=== PATIENT | female | born 1990 | race Caucasian/White ===

== ENCOUNTER → 2019-04-22 | Outpatient (CLI) | payer BC ==
--- NOTE | 2019-04-22 14:54 | CT ---
EXAM DESCRIPTION: Abdomen/Pelvis w/Contrast: Computed Tomography. CLINICAL HISTORY: 29 years Female LOWER ABDOMINAL PAIN. Tender palpation right lower quadrant. Afebrile. Normal white blood count. COMPARISON: Endovaginal pelvic ultrasound on this visit. TECHNIQUE: Spiral-axial scans at 5 x 5 mm intervals through the abdomen and pelvis, after nonionic IV contrast without oral contrast. Coronal and sagittal 2.0 mm reconstructions. Delayed scans, liver through the pelvis. Axial-spiral 5mm. No adverse reactions. Total Exam DLP: 2181 mGy-cm. This exam was performed according to our departmental dose-optimization program which includes automated exposure control, adjustment of the mA and/or kV according to patient size and/or use of iterative reconstruction technique; to reduce radiation dose to as low as reasonably achievable (ALARA). FINDINGS: Lung bases and pleura: Negative Liver, Stomach, Spleen, Adrenal Glands: Long axis right lobe 18.1 cm. Normal hepatic density and enhancement and vascularity. Stomach and other solid organs are unremarkable. Pancreas, Gallbladder, Ducts: Gallbladder identified. Duct and pancreas negative. Kidneys and Ureters: Unremarkable. Mesentery: No stranding or fascial thickening. Minimal fluid in the cul-de-sac but no ascites. No fatty stranding or fascial thickening in the adjacent to the cul-de-sac. Aorta: Negative. Small Bowel: Minimal gas and fluid with no distention or obstruction. Terminal Ileum/Cecum: Normal caliber of the structures and normal caliber of the appendix with no surrounding fluid or mesenteric reaction. Colon: Gas and fecal matter proximal and mid colon. Decompressed proximal sigmoid with redundancy of the mid and distal sigmoid. No complications. Pelvic Organs: 3.2 cm left ovarian cyst and 2.6 cm right ovarian cyst with no enhancement or surrounding fatty stranding. Uterus is anteverted. Minimal fluid in the cul-de-sac between the rectum and posterior cervix. Enhancement of the myometrium. Spine and Bony Pelvis: Minimal levoscoliosis lumbar spine. Abdominal Wall/Back Soft Tissues: Tiny right inguinal fatty hernia not containing bowel. IMPRESSION: 1. Large bilateral ovarian cysts with fluid in the cul-de-sac. No abnormal enhancement. This could be secondary to a ruptured ovarian cyst. 2. Appendix, terminal ileum, and cecum are unremarkable. No surrounding inflammatory changes. 3. Mild hepatomegaly. Liver otherwise unremarkable with no ascites. CRITICAL COMMUNICATION: The critical value was communicated directly by Dr. Sher directly in person, to Dr. Faizan Galindo, at approximately 1345 hours, on 22 April 2019. Electronically signed by: Brock Sher MD 04/22/2019 2:52 PM [facility]
--- NOTE | 2019-04-22 15:18 | US ---
EXAM DESCRIPTION: Pelvis Transvaginal: Ultrasound. CLINICAL HISTORY: 29 years Female LOWER ABDOMINAL PAIN COMPARISON: CT scan of abdomen and pelvis with IV contrast following this examination. TECHNIQUE: Endovaginal scanning; Jameson-scale and Doppler modes. FINDINGS: Uterus 9.0 x 4.1 x 3.9 cm 74.8 mL.. Endometrial thickness 5.0-7.5 mm. Myometrium heterogeneous. Echogenic lobulated mass in the anterior wall anterior to the endometrium measuring 1.8 x 1.4 x 1.0 cm. Uterus not retroverted. Cervix contains fluid. Small cyst 4.1 mm. Small calcification versus fatty nodule 3.9 mm. Cul-de-sac minimal fluid. Right ovary measurements cm 1.8 x 1.6 x 1.6. Cm. Normal color and waveform Doppler vascularity. 0.7 cm simple follicle but no cysts. No adnexal mass or free fluid. Minimal free fluid. Left ovary 3.1 x 2.9 x 3.0 cm 13.8 mL.. Normal waveform and color Doppler vascularity. 2.9 x 2.6 x 2.3 cm simple cyst. No adnexal mass or free fluid. IMPRESSION: 1. Uterus not enlarged. Normal position. No endometrial thickening or fluid. 1.8 cm solid hyperechoic fibroid anterior to the endometrium. Small cyst and fatty nodule more likely than calcification in the cervix; fluid in the endocervical canal. Minimal fluid in the cul-de-sac. 2. 2.9 cm simple ovarian cyst. No follow-up imaging of the ovaries recommended. Simple follicle in the right ovary. Reference: Radiology 2009;256(3):943-54. Electronically signed by: Brock Sher MD 04/22/2019 3:17 PM [facility]
== END ==
LOC: US 12:10
PROVIDERS: ATTEND Family Medicine
DX: N83.201 Unspecified ovarian cyst, right side (principal); N83.202 Unspecified ovarian cyst, left side; R16.0 Hepatomegaly, not elsewhere classified; D25.9 Leiomyoma of uterus, unspecified; N88.8 Other specified noninflammatory disorders of cervix uteri